=== PATIENT | male | born 1970 | race Caucasian/White ===

== ENCOUNTER → 2016-10-12 | Outpatient (REF) | payer OTHER ==
[2016-10-12 11:40] LABS: MEAN CORPUSCULAR HEMOGLOBIN 29.3 pg (27.0-33.0); MEAN CORPUSCULAR HGB CONC 33.7 g/dl (32.0-36.5); MEAN CORPUSCULAR VOLUME 86.9 fl (80.0-96.0); WHITE BLOOD COUNT 4.8 K/mm3 (4.0-10.0)
[2016-10-12 11:45] LABS: ALBUMIN 4.3 GM/DL (3.2-5.2); ALBUMIN/GLOBULIN RATIO 1.48 (1.00-1.93); ALKALINE PHOSPHATASE 84 U/L (45-117); ALT/SGPT 56 U/L (12-78); ANION GAP 6 MEQ/L (8-16); AST/SGOT 27 U/L (15-37); BILIRUBIN,TOTAL 0.4 MG/DL (0.2-1.0); BLOOD UREA NITROGEN 7 MG/DL (7-18); CALCIUM LEVEL 9.1 MG/DL (8.5-10.1); CARBON DIOXIDE LEVEL 29 MEQ/L (21-32); CHLORIDE LEVEL 105 MEQ/L (98-107); CHOLESTEROL LEVEL 150 MG/DL (<200); CREATININE FOR GFR 1.09 MG/DL (0.70-1.30); GLOMERULAR FILTRATION RATE > 60.0 (>60); GLUCOSE, FASTING 88 MG/DL (70-105); POTASSIUM SERUM 4.5 MEQ/L (3.5-5.1); SODIUM LEVEL 140 MEQ/L (136-145); TOTAL PROTEIN 7.2 GM/DL (6.4-8.2); TRIGLYCERIDES LEVEL 148 MG/DL (<150)
== END ==
LOC: M SFHCCLAY 07:35
PROVIDERS: ATTEND Nurse Practitioner Family
DX: K21.9 Gastro-esophageal reflux disease without esophagitis (principal); F32.9 Major depressive disorder, single episode, unspecified; E78.5 Hyperlipidemia, unspecified; E55.9 Vitamin D deficiency, unspecified

== ENCOUNTER 2016-11-12 08:52 | Emergency (ER) | payer OTHER ==
[~2016-11-12] VITALS: Ht 180.3 cm; Wt 125.0 kg
[2016-11-12] MEDS ORDERED: ELIQ5TAB PO (09:00)
--- NOTE | 2016-11-12 10:00 | REP ---
Right lower extremity deep vein duplex ultrasound: The veins demonstrate normal compression, normal Doppler color flow and normal Doppler waveforms with respiration augmentation at multiple levels from the popliteal vein to the common femoral vein. There is no deep vein thrombus. Ultrasonography over the area of pain at the medial right calf identifies a patent varicose vein. Impression: There is no deep vein thrombus. There is a patent superficial varicose vein at the medial aspect of the calf. Signed by Elie Hull MD 11/12/2016 09:51 A
[2016-11-12 10:15] VITALS: BP 143/96
== END 2016-11-12 10:16 | disposition home or self-care (01) ==
LOC: M ED 08:52
DX: I83.811 Varicose veins of right lower extremity with pain (principal); Z79.01 Long term (current) use of anticoagulants; Z91.14 Patient's other noncompliance with medication regimen

== ENCOUNTER 2017-07-11 10:28 | Day surgery (SDC) | payer OTHER ==
[2017-07-11] MEDS ORDERED: LIDOCAINE 1% SDV 5 ML VIAL SQ (10:45)
[2017-07-11] MEDS: LR 1,000 ML IV (11:10)
[2017-07-11] MEDS ORDERED: MIDAZOLAM INJ 2 MG/2 ML VIAL (J2250) As Ordered (11:37)
[2017-07-11] MEDS ORDERED: fentaNYL 100 MCG/2 ML INJECTION (J3010) As Ordered (11:37)
[2017-07-11] MEDS ORDERED: PROPOFOL 200 MG/20 ML VIAL As Ordered (11:37)
[2017-07-11] MEDS ORDERED: LIDOCAINE 2% INJ 100 MG/5 ML SDV (FOR ANES.) As Ordered (11:37)
[2017-07-11] MEDS: LIDOCAINE 1% MDV 20ML VIAL As Ordered (12:47)
== END 2017-07-11 13:50 | disposition home or self-care (01) ==
LOC: M SDC 10:28
DX: Z45.09 Encounter for adjustment and management of other cardiac device (principal); I10 Essential (primary) hypertension; I48.0 Paroxysmal atrial fibrillation; F41.9 Anxiety disorder, unspecified; F32.9 Major depressive disorder, single episode, unspecified; K21.9 Gastro-esophageal reflux disease without esophagitis; M12.9 Arthropathy, unspecified; R06.02 Shortness of breath; M54.2 Cervicalgia; G43.909 Migraine, unspecified, not intractable, without status migrainosus; F43.10 Post-traumatic stress disorder, unspecified; R09.89 Other specified symptoms and signs involving the circulatory and respiratory systems; R06.83 Snoring; E66.9 Obesity, unspecified; Z68.33 Body mass index [BMI] 33.0-33.9, adult; Z79.82 Long term (current) use of aspirin
CPT/HCPCS: 33284